=== PATIENT | female | born 1965 | race Caucasian/White ===

== ENCOUNTER → 2016-12-24 | Day surgery (SDC) | payer BC ==
[2016-12-20 08:41] VITALS: BMI 21.4
[~2016-12-24] MED LIST: GLUCAGON 1 MG/ML VIAL ONE; LACTATED RINGERS 1,000 ML IV SCH; LIDOCAINE 1% 20 ML VIAL (10MG/ML) FOR IV START INTRADERMA PRN; PROPOFOL 10 MG/ML 20 ML VIAL IV ONE
[2016-12-24 10:41] VITALS: RESP 16; TEMP 97.1
--- NOTE | 2016-12-24 11:04 | P.GSHP ---
History of Present Illness H&P Date: 12/24/16 Chief Complaint: Screening colonoscopy This a 51-year-old female referred from . Patient presents today for screening colonoscopy. She denies a significant GI complaints. - Constitutional Constitutional: Reports as per HPI Past Medical History Past Medical History: Musculoskeletal Disorder Additional Past Medical History / Comment(s): MS History of Any Multi-Drug Resistant Organisms: None Reported Past Surgical History: Uterine Ablation Additional Past Surgical History / Comment(s): D & C Past Anesthesia/Blood Transfusion Reactions: No Reported Reaction Past Psychological History: Depression Smoking Status: Never smoker Past Alcohol Use History: Occasional Past Drug Use History: None Reported - Past Family History Mother Family Medical History: No Reported History Medications and Allergies Home Medications Medication Instructions Recorded Confirmed Type Dimethyl Fumarate [Tecfidera] 240 mg PO BID 12/20/16 12/20/16 History Multivitamins, Thera [Multivitamin 1 each PO DAILY 12/20/16 12/24/16 History (formulary)] Ustekinumab [Stelara] 130 mg IV DIRECTED 12/20/16 12/24/16 History Venlafaxine HCl [Effexor] 75 mg PO DAILY 12/20/16 12/20/16 History Allergies Allergy/AdvReac Type Severity Reaction Status Date / Time No Known Allergies Allergy Verified 12/20/16 08:33 Surgical - Exam Vital Signs Temp Pulse Resp BP Pulse Ox 97.1 F L 93 16 128/75 99 12/24/16 10:40 12/24/16 10:40 12/24/16 10:40 12/24/16 10:40 12/24/16 10:40 - General well developed, no distress - Eyes PERRL - ENT normal pinna - Neck no masses - Respiratory normal expansion - Cardiovascular Rhythm: regular - Abdomen Abdomen: soft, non tender Assessment and Plan Plan: We'll perform screening colonoscopy.
--- NOTE | 2016-12-24 11:27 | P.OP ---
Date of Procedure: 12/24/16 Preoperative Diagnosis: Screening colonoscopy Postoperative Diagnosis: Tortuous colon Normal left colon, sigmoid colon and rectum Incomplete colonoscopy Procedure(s) Performed: Colonoscopy Implants: Anesthesia: MAC Surgeon: Adryan Giron Pathology: none sent Condition: stable Disposition: PACU Indications for Procedure: Operative Findings: Description of Procedure: The patient's placed on the endoscopy table in the lateral position. She received IV sedation. Digital rectal exam was performed which revealed internal and external hemorrhoids. The flexible colonoscope was then placed patient anus and passed throughout the colon. The sigmoid colon and left colon was quite tortuous. The scope could not be advanced beyond the 70 cm samantha. This point the scope was withdrawn and it was exchanged for a pediatric scope and once again the pediatric scope could not be advanced beyond the 70 cm samantha due to tortuosity the valve. Patient was given glucagon as well nor to relax the bowel however it was impossible to advance the scope. At this point the scope was withdrawn and the splenic flexure, descending colon, sigmoid colon and rectum appeared normal. The patient was sent to recovery room and scheduled for a barium enema.
[2016-12-24 11:32] VITALS: PULSE 76
[2016-12-24 11:55] VITALS: BP 110/58
--- NOTE | 2016-12-24 17:02 | FL ---
EXAMINATION TYPE: FL barium enema DATE OF EXAM: 12/24/2016 2:58 PM COMPARISON: NONE HISTORY: Incomplete colonoscopy TECHNIQUE: A air contrast barium enema study is performed. FINDINGS: Weight Control Lecturer view of the abdomen shows overall non-obstructive bowel gas pattern. No evidence of any mass or polyp, obstructing or constricting lesion throughout the colon. No signif icant diverticular disease is noted. There is a rounded lucency within the proximal descending colon at the splenic flexure during the fluoroscopy. However, this is not visualized on additional images. Near but was more likely than a sessile polyp at this location. There is difficulty filling the cecum. However, the cecal valve appears to be visualized. IMPRESSION: 1. Suspicious findings are not identified.
== END | disposition home or self-care (01) ==
LOC: ORWHC2ENDO 10:24
PROVIDERS: ATTEND Surgery
DX: Z12.11 Encounter for screening for malignant neoplasm of colon (principal); Q43.8 Other specified congenital malformations of intestine; K64.4 Residual hemorrhoidal skin tags; K64.8 Other hemorrhoids; F32.9 Major depressive disorder, single episode, unspecified; Z79.899 Other long term (current) drug therapy
CPT/HCPCS: 81025; 74270; J1610; J2704; G0104; 45378

== ENCOUNTER → 2017-08-19 | Outpatient (CLI) | payer BC ==
[2017-08-20 00:20] LABS: ALT 31 U/L (9-52); AST 23 U/L (14-36); Albumin 4.5 g/dL (3.5-5.0); Alkaline Phosphatase 56 U/L (38-126); Anion Gap 11 mmol/L; Blood Urea Nitrogen 18 mg/dL (7-17); Calcium 9.6 mg/dL (8.4-10.2); Carbon Dioxide 30 mmol/L (22-30); Chloride 100 mmol/L (98-107); Cholesterol 251 mg/dL (<200); Glucose 89 mg/dL (74-99); HDL Cholesterol 86 mg/dL (40-60); LDL Cholesterol,Calculated 151 mg/dL (0-99); Potassium 4.1 mmol/L (3.5-5.1); Sodium 141 mmol/L (137-145); Total Bilirubin 0.5 mg/dL (0.2-1.3); Triglycerides 72 mg/dL (<150)
== END | disposition home or self-care (01) ==
LOC: MMGSC 10:39
PROVIDERS: ATTEND Family Medicine
DX: Z00.00 Encounter for general adult medical examination without abnormal findings (principal)
CPT/HCPCS: 36415; 80053; 80061

== ENCOUNTER → 2017-12-09 | Outpatient (CLI) | payer BC ==
[2017-12-09 11:39] LABS: Basophils % (A) 1 %; Eosinophils # (A) 0.1 k/uL (0-0.7); Eosinophils % (A) 3 %; HCT 43.8 % (34.0-46.0); Lymphocytes # (A) 1.4 k/uL (1.0-4.8); Lymphocytes % (A) 35 %; MCH 29.7 pg (25.0-35.0); MCHC 31.8 g/dL (31.0-37.0); MCV 93.3 fL (80.0-100.0); Mean Platelet Volume 7.8; Monocytes # (A) 0.4 k/uL (0-1.0); Monocytes % (A) 9 %; Neutrophils % (A) 50 %; Platelet Count 186 k/uL (150-450); RDW 12.5 % (11.5-15.5); WBC 4.1 k/uL (3.8-10.6)
[2017-12-09 11:55] LABS: Anion Gap 14 mmol/L; Blood Urea Nitrogen 16 mg/dL (7-17); Carbon Dioxide 30 mmol/L (22-30); Chloride 103 mmol/L (98-107); Glucose 74 mg/dL (74-99); Potassium 4.1 mmol/L (3.5-5.1); Sodium 147 mmol/L (137-145)
== END | disposition home or self-care (01) ==
LOC: LABPAT 11:11
PROVIDERS: ATTEND Obstetrics & Gynecology
DX: Z01.812 Encounter for preprocedural laboratory examination (principal); N81.4 Uterovaginal prolapse, unspecified
CPT/HCPCS: 80051; 82565; 82947; 84520; 85025; 87086

== ENCOUNTER 2017-12-17 07:38 | Observation (INO) | payer BC ==
[2017-12-12 15:01] VITALS: BMI 21.1
--- NOTE | 2017-12-16 15:30 | HP ---
HISTORY AND PHYSICAL HISTORY OF PRESENT ILLNESS: The patient is a 52-year-old 3, para 3-0-0-3, who presented to the office complaining of symptoms of pelvic organ prolapse. She has noted that her cervix she feels is protruding from the vagina increasingly over the last 4 years and is significantly worse with Valsalva. She reported that it used to periodically regress spontaneously, but now it is present there fairly continuously. She has occasional symptoms of discomfort. She does continue to have cycles that are relatively regular at this point. She denies any significant pressure, though she does occasionally feel a pinch with bending over. There is also occasional dyspareunia and no significant vasomotor symptoms or other symptoms consistent with menopause. PAST MEDICAL HISTORY: Significant for multiple sclerosis as well as history of psoriasis. PAST SURGICAL HISTORY: Significant for hysteroscopy, D and C, and NovaSure endometrial ablation in 2008. There were no anesthetic concerns. OBSTETRICAL HISTORY: 3, para 3-0-0-3 with 3 term vaginal deliveries without complications. GYNECOLOGIC HISTORY: Unremarkable with no history of any infections to include STDs. FAMILY HISTORY: Noncontributory. SOCIAL HISTORY: The patient is and is a nonsmoker. She reports occasional alcohol and denies any social concerns. CURRENT MEDICATIONS INCLUDE: 1. Effexor XR 75 mg daily. 2. Tecfidera 240 mg twice daily. 3. Vitamin D3 daily. 4. Multivitamin daily. ALLERGIES: No known drug allergies. REVIEW OF SYSTEMS: Confined to history of present illness. PHYSICAL EXAMINATION: Vital signs are stable and the patient is afebrile. In general, this is a well-developed, well-nourished white female in no acute distress. HEENT: Demonstrates PERRLA, EOMI, her oropharynx is clear. NECK: Supple without adenopathy and the thyroid is normal to palpation. HEART: Has a regular rhythm and rate without murmur. Her lungs are clear to auscultation bilaterally in all presley. Her back is without spinal or CVA tenderness. Her abdomen is nondistended, has normoactive bowel sounds, soft, nontender, and without any palpable masses, hepatosplenomegaly, or hernias. Her extremities are without any cyanosis, clubbing, or edema and are nontender to palpation bilaterally. Pelvic examination demonstrates normal external genitalia and BUS with normal vaginal mucosa and cervix. There is no cervical motion tenderness. The uterus is 5 weeks' in size, retroverted, mobile, nontender, normal in shape. There is uterine prolapse to the opening and beyond the opening of the vagina, grade 4. There does not appear to be any significant cystocele or rectocele present. ASSESSMENT AND PLAN: Grade 4 uterine prolapse: The patient was counseled regarding options and opted to proceed with definitive therapy. As a result, she will undergo vaginal hysterectomy with possible bilateral salpingectomy if they can be removed safely. I have also added to the consent form possible anterior repair and possible posterior repair depending on what is found under anesthetic conditions. The risks and complications of the procedure have been thoroughly discussed including the risks for bleeding, bleeding requiring transfusion, infection, and injury to local structures to specifically include the bowel, bladder, and ureters. She has understood this and agrees to proceed. We also discussed the typical hospital and postoperative courses. KILLIAN / YAIMA: [id number] /
[~2017-12-17 07:38] MED LIST changes: +DEXAMETHASONE SOD PHOSPHATE 10 MG/ML 1 ML VIAL IV ONE; -GLUCAGON 1 MG/ML VIAL ONE; +MIDAZOLAM 2 MG/2 ML VIAL IV PRN; -PROPOFOL 10 MG/ML 20 ML VIAL IV ONE; +SCOPOLAMINE 1.5MG/72HR PATCH TRANSDERM ONE; +ceFAZolin IN SWFI 2 GM/20 ML SYRINGE IVP ONE
[2017-12-17] MEDS: ONDANSETRON 4 MG/2 ML VIAL IVP ONE ×2 (08:22→11:22)
[2017-12-17] MEDS ORDERED: PROPOFOL 10 MG/ML 20 ML VIAL IV ONE (09:32)
[2017-12-17] MEDS ORDERED: GLYCOPYRROLATE 0.2 MG/ML 2 ML VIAL ONE (09:32)
[2017-12-17] MEDS ORDERED: NEOSTIGMINE 1 MG/ML 10 ML VIAL ONE (09:32)
[2017-12-17] MEDS ORDERED: MIDAZOLAM 2 MG/2 ML VIAL ONE (09:32)
[2017-12-17] MEDS ORDERED: LIDOCAINE 1% INJ 10MG/ML (20 ML MDV) ONE (09:32)
[2017-12-17] MEDS ORDERED: fentaNYL (PF) 50 MCG/ML 2 ML AMP ONE (09:32)
[2017-12-17] MEDS ORDERED: ROCURONIUM BROMIDE 10 MG/ML 10 ML VIAL IV ONE (09:32)
[2017-12-17] MEDS ORDERED: KETOROLAC 30 MG/ML 1 ML VIAL ONE (09:32)
[2017-12-17] MEDS ORDERED: diphenhydrAMINE 50 MG/ML 1 ML VIAL IVP PRN (09:40)
[2017-12-17] MEDS ORDERED: IBUPROFEN 600 MG TAB PO PRN (09:40)
[2017-12-17] MEDS ORDERED: Acetaminophen-Codeine 300-30mg TAB PO PRN ×2 (09:40)
[2017-12-17] MEDS ORDERED: METOCLOPRAMIDE 5 MG/ML 2 ML VIAL IVP PRN (09:40)
[2017-12-17] MEDS ORDERED: SIMETHICONE 80 MG CHEWABLE PO PRN (09:40)
[2017-12-17] MEDS ORDERED: ONDANSETRON 4 MG/2 ML VIAL IVP PRN (09:40)
[2017-12-17] MEDS ORDERED: ZOLPIDEM 5 MG TAB PO PRN (09:40)
[2017-12-17] MEDS ORDERED: VASOPRESSIN 20 UNIT/ML 1 ML VIAL SQ ONE (09:51)
[2017-12-17] MEDS ORDERED: BACITRACIN 500 UNIT/GM OINT 28.4 GM TUBE TOPICAL ONE (10:20)
[2017-12-17] MEDS ORDERED: LACTATED RINGERS 1,000 ML IV ONE (10:27)
--- NOTE | 2017-12-17 10:30 | P.OP ---
Date of Procedure: 12/17/17 Preoperative Diagnosis: #1. Grade 4 uterine prolapse Postoperative Diagnosis: Same Procedure(s) Performed: #1. Vaginal hysterectomy #2. Bilateral salpingectomy Anesthesia: PORFIRIO Surgeon: Alfredo Diaz Personal Development Coach #1: Karla Black Estimated Blood Loss (ml): 20 IV fluids (ml): 900 Urine output (ml): 300 Pathology: other (Uterus and bilateral fallopian tubes) Condition: stable Disposition: PACU Operative Findings: Preoperative pelvic examination demonstrated grade 4 uterine prolapse with no apparent cystocele or rectocele present. This was confirmed intraoperatively. The bilateral ovaries were normal to inspection and, as the fallopian tubes were easily accessible, they were removed and sent with the specimen. Description of Procedure: The patient was prepped and draped in usual fashion after general endotracheal anesthesia was administered by the anesthesiologist. A weighted speculum was placed and the cervix grasped with double-tooth tenaculum. The bladder was drained of approximately 300 mL of clear diane urine. The cervicovaginal mucosa was infused with diluted vasopressin solution and incised circumferentially at the cervicovaginal junction. The cervicovaginal mucosa was then reflected distally using a 4 x 4. The posterior peritoneum was identified and incised sharply with the Cordova scissors and then tagged with a 2- 0 Vicryl for later closure. The short weighted speculum was replaced with a long weighted speculum. The uterosacral ligaments on each side were clamped with curved Nitin-Humphrey clamps, cut, and suture-ligated with a transfixion stitch of 0 Vicryl. Serial bites were taken up the cardinal ligament towards the utero-ovarian ligament on each side using curved Nitin- Humphrey clamps after ensuring that the bladder had been reflected distally. Each bite was cut and suture-ligated with a transfixion stitch of 0 Vicryl. After several bites on each side, the uterus was inverted posteriorly to allow identification of the anterior peritoneum which was then opened sharply using the Bovie. This isolated the utero-ovarian pedicles on each side which were clamped with curved Nitin-Humphrey clamps, cut, and suture-ligated with a transfixion stitch of 0 Vicryl followed by a free tie of 0 Vicryl. As the ovaries and tubes were immediately apparent in the incision, the fallopian tube was elevated with a forceps allowing placement of a Nitin-Humphrey clamp across its base at the closure of the utero-ovarian ligament. It was then transected from the patient and sent with the specimen. The pedicle was then transfixion stitch with a stitch of 0 Vicryl. A similar operation was carried out on the opposite side. All of the vascular pedicles appeared to be entirely hemostatic. The long weighted speculum was replaced the short weighted speculum and the previously placed stitch of 2-0 Vicryl utilized to close the parietal peritoneum in a running pursestring stitch. The uterosacral ligaments were then stitched together with 0 Vicryl and through the vaginal cuff from each side to the contralateral side in a modified Edmondson's culdoplasty. The intervening open vaginal mucosa was then closed with interrupted figure-of- eight stitches of 0 Vicryl. Any raw edges were made hemostatic with the Bovie. Hemostasis appeared to be excellent. All instrumentation was then removed and the Shell catheter placed demonstrating clear urine. The vagina was packed with one-inch iodophor gauze covered with bacitracin ointment. All sponge, instrument, and needle counts were correct. Estimated blood loss for the case was 20 mL. There were no complications. The patient tolerated the procedure well and proceeded to the recovery room in stable condition.
[2017-12-17] MEDS: MORPHINE SULFATE 2 MG/ML SYRINGE IV PRN ×4 (11:24→11:49)
[2017-12-17] MEDS ORDERED: diphenhydrAMINE 50 MG/ML 1 ML VIAL IVP ONE (11:39)
[2017-12-17] MEDS: fentaNYL (PF) 50 MCG/ML 2 ML AMP IVP ONE ×2 (11:54→12:12)
[2017-12-17] MEDS: KETOROLAC 30 MG/ML 1 ML VIAL IVP PRN ×2 (16:32→22:22)
[2017-12-17] MEDS: LACTATED RINGERS 1,000 ML IV SCH ×2 (16:34→19:33)
[2017-12-17] MEDS: SENNOSIDES-DOCUSATE SODIUM 1 EACH TAB PO SCH (19:33)
[2017-12-17 19:58] VITALS: TEMP 98.1
[2017-12-18] MEDS: LACTATED RINGERS 1,000 ML IV SCH (04:21)
[2017-12-18] MEDS: KETOROLAC 30 MG/ML 1 ML VIAL IVP PRN (04:21)
[2017-12-18 06:47] LABS: Basophils % (A) 0 %; Eosinophils # (A) 0.1 k/uL (0-0.7); Eosinophils % (A) 1 %; HCT 38.2 % (34.0-46.0); HGB 12.6 gm/dL (11.4-16.0); Lymphocytes # (A) 1.8 k/uL (1.0-4.8); Lymphocytes % (A) 22 %; MCH 30.6 pg (25.0-35.0); MCHC 33.1 g/dL (31.0-37.0); MCV 92.5 fL (80.0-100.0); Mean Platelet Volume 7.5; Monocytes # (A) 0.7 k/uL (0-1.0); Monocytes % (A) 8 %; Neutrophils # (A) 5.7 k/uL (1.3-7.7); Neutrophils % (A) 68 %; Platelet Count 175 k/uL (150-450); RBC 4.13 m/uL (3.80-5.40); RDW 13.1 % (11.5-15.5); WBC 8.4 k/uL (3.8-10.6)
[2017-12-18] MEDS: SENNOSIDES-DOCUSATE SODIUM 1 EACH TAB PO SCH (07:38)
[2017-12-18 08:07] VITALS: BP 111/62; PULSE 71; RESP 18
--- NOTE | 2017-12-18 08:34 | P.DS ---
Providers Date of admission: 12/18/17 00:40 Expected date of discharge: 12/18/17 Attending physician: Alfredo Diaz Primary care physician: Cara De La O - Discharge Diagnosis(es) (1) Uterine prolapse Current Visit: Yes Status: Acute Hospital Course: Patient is a 52-year-old 3 para 3003 who presented to the office with complaints of something protruding from the vagina. She feels that it is the uterus and this is confirmed on examination. There did not appear to be any other prolapse concerns to include cystocele and rectocele. She was counseled regarding options and chose to undergo vaginal hysterectomy. The procedure was carried out to the width complications and the bilateral fallopian tubes removed as well. The ovaries were left in situ. Her postoperative course was entirely unremarkable vital signs remained stable and her temperature was afebrile throughout. She was deemed stable for discharge by postoperative day # 1 she is tolerating regular diet and has minimal pain. She was discharged home to follow-up in the office in 2 weeks for recheck and 6 weeks routinely. Discharge instructions included calling for any significantly increased bleeding , fever, abdominal pain, urinary or bowel concerns, or anything else that concerns her. She was additionally instructed to have nothing in the vagina for at least 6 weeks time to include intercourse and to abstain from driving until off of pain medications. She understood all of her instructions and agrees to follow up as noted above. Discharge medications included only over- the-counter analgesic pain medications and any home medication she may be taking. Discharge hemoglobin and hematocrit were 12.6 and 38.2 respectively. Procedures: #1. Vaginal hysterectomy #2. Bilateral salpingectomy Patient Condition at Discharge: Good Plan - Discharge Summary Discharge Rx Participant: No New Discharge Prescriptions: No Action Venlafaxine HCl [Effexor] 75 mg PO DAILY Ustekinumab [Stelara] 130 mg IV Q90D Multivitamins, Thera [Multivitamin (formulary)] 1 tab PO DAILY Dimethyl Fumarate [Tecfidera] 240 mg PO BID Discharge Medication List Dimethyl Fumarate [Tecfidera] 240 mg PO BID 12/20/16 [History] Multivitamins, Thera [Multivitamin (formulary)] 1 tab PO DAILY 12/20/16 [History ] Ustekinumab [Stelara] 130 mg IV Q90D 12/20/16 [History] Venlafaxine HCl [Effexor] 75 mg PO DAILY 12/20/16 [History] Follow up Appointment(s)/Referral(s): Alfredo Diaz MD [STAFF PHYSICIAN] - 2 Weeks Patient Instructions/Handouts: Hysterectomy (DC) Discharge Disposition: HOME SELF-CARE
== END 2017-12-18 09:28 | disposition home or self-care (01) ==
LOC: OR 07:38 → 6PED 10:26 → OR 12-18 00:40 → 6PED 12-18 00:40
PROVIDERS: ADMIT Obstetrics & Gynecology; ATTEND Obstetrics & Gynecology
DX: N81.2 Incomplete uterovaginal prolapse (principal); N80.0 Endometriosis of uterus; D25.9 Leiomyoma of uterus, unspecified; N94.10 Unspecified dyspareunia; G35 Multiple sclerosis; L40.9 Psoriasis, unspecified; Z79.899 Other long term (current) drug therapy
CPT/HCPCS: 81025; 86900; 86901; 85025; 86850; 88342; 88307; 58262; G0378; J1200; J1100; J2405; J3010; J1885 ×2; J2270; J0690

== ENCOUNTER → 2019-08-13 | Outpatient (CLI) | payer BC ==
[2019-08-13 12:42] LABS: HGB 14.3 gm/dL (11.4-16.0); MCH 30.8 pg (25.0-35.0); MCHC 32.5 g/dL (31.0-37.0); MCV 94.7 fL (80.0-100.0); Platelet Count 173 k/uL (150-450); RBC 4.65 m/uL (3.80-5.40); RDW 12.5 % (11.5-15.5); WBC 4.4 k/uL (3.8-10.6)
[2019-08-13 18:54] LABS: Follicle Stimulating Hormone 82.4 mIU/mL; Prolactin 4.9 ng/mL (2.8-29.2); T4, Free (Free Thyroxine) 1.1 ng/dL (0.80-1.80)
[2019-08-13 19:00] LABS: Thyroid Peroxidase Antibodies 432.4 U/mL (0.0-60.0)
[2019-08-13 22:42] LABS: ACTH 9.48 pg/mL (0.00-45.99)
== END | disposition home or self-care (01) ==
LOC: LABWHC1 11:27
PROVIDERS: ATTEND Internal Medicine Endocrinology, Diabetes & Metabolism
DX: R53.83 Other fatigue (principal); R94.6 Abnormal results of thyroid function studies
CPT/HCPCS: 36415; 82024; 82533; 82607; 83001; 84146; 84439; 84443; 84481; 85027; 86376

== ENCOUNTER → 2019-10-02 | Outpatient (CLI) | payer BC | END | disposition home or self-care (01) | LOC: LABWHC1 11:46 | PROVIDERS: ATTEND Internal Medicine Endocrinology, Diabetes & Metabolism | DX: E03.9 Hypothyroidism, unspecified (principal) | CPT/HCPCS: 36415; 84443; 86376 ==

== ENCOUNTER → 2019-11-05 | Outpatient (CLI) | payer BC ==
[2019-11-05 11:44] LABS: Basophils % (A) 1 %; Eosinophils # (A) 0.1 k/uL (0-0.7); Eosinophils % (A) 2 %; HCT 41.8 % (34.0-46.0); HGB 13.5 gm/dL (11.4-16.0); Lymphocytes # (A) 1.5 k/uL (1.0-4.8); Lymphocytes % (A) 32 %; MCH 29.9 pg (25.0-35.0); MCHC 32.3 g/dL (31.0-37.0); MCV 92.5 fL (80.0-100.0); Monocytes # (A) 0.3 k/uL (0-1.0); Monocytes % (A) 7 %; Neutrophils # (A) 2.6 k/uL (1.3-7.7); Neutrophils % (A) 55 %; Platelet Count 208 k/uL (150-450); RBC 4.52 m/uL (3.80-5.40); RDW 11.9 % (11.5-15.5); WBC 4.8 k/uL (3.8-10.6)
[2019-11-05 19:16] LABS: African American GFR (CKD) 118.9 (60.0-200.0); Non-African American GFR(CKD) 102.6 (60.0-200.0)
[2019-11-05 20:01] LABS: Hepatitis B Surface AB- Quant 3.5 mIU/mL; Hepatitis B Surface Antibody Non-Reactive (Non-Reactive); Hepatitis B Surface Antigen Non-Reactive (Non-Reactive)
== END | disposition home or self-care (01) ==
LOC: LABWHC1 11:10
PROVIDERS: ATTEND Dermatology
DX: L40.0 Psoriasis vulgaris (principal); G35 Multiple sclerosis; L57.0 Actinic keratosis
CPT/HCPCS: 36415; 82565; 84450; 84460; 85025; 86480; 86704; 86706; 87340

== ENCOUNTER → 2019-11-19 | Outpatient (CLI) | payer BC | END | disposition home or self-care (01) | LOC: LABWHC1 10:45 | PROVIDERS: ATTEND Internal Medicine Endocrinology, Diabetes & Metabolism | DX: E03.9 Hypothyroidism, unspecified (principal) | CPT/HCPCS: 36415; 84443 ==